=== PATIENT | female | born 1985 | race Caucasian/White ===

== ENCOUNTER 2018-06-16 22:04 | Emergency (ER) | payer OTHER ==
[~2018-06-16] VITALS: Ht 157.4 cm; Wt 47.6 kg
[~2018-06-16 22:04] MED LIST: AMOXICILLIN500 MG PO; AMOXIL250 MG PO; ANAPROX DS550 MG PO; ANTIPYRINE/BENZ10 ML OT; ATIVAN1 MG PO; AUGMENTIN 875875 MG PO; BACTRIM DS 8001 TA1 PO; BIAXIN500 MG PO; CIPRO500 MG PO; CIPRODEX 0.3%-7.5 ML OT; CLARITIN10 MG PO; COMPAZINE10 MG PO; DAYPRO600 M1 PO; FLONASE 0.05% 121 EA NAS; KEFLEX500 MG PO; MACROBID100 M1 PO; MACROBID100 MG PO; MOTRIN800 MG PO; NKHM; PROVENTIL0.09 MG/AC IH; ROBAXIN750 MG PO; TRAMADOL HCL50 MG PO; ULTRAM50 MG PO; VIBRA-TAB100 MG PO; VIBRAMYCIN100 MG PO; VICODIN 5/500 505 MG PO; XANAX1 MG PO; ZITHROMAX Z PA250 MG PO; ZYRTEC10 M2 PO
[2018-06-16 22:06] VITALS: BP 118/58
[2018-06-16] MEDS ORDERED: BENADRYL25 M2 PO (22:27)
[2018-06-16] MEDS ORDERED: PREDNISONE20 M1 PO (22:27)
== END 2018-06-16 22:10 | disposition home or self-care (01) ==
LOC: ED 22:04
DX: L25.9 Unspecified contact dermatitis, unspecified cause (principal); F17.200 Nicotine dependence, unspecified, uncomplicated

== ENCOUNTER 2018-07-20 23:56 | Emergency (ER) | payer OTHER ==
[~2018-07-20] VITALS: Ht 157.4 cm; Wt 47.6 kg
[2018-07-20 23:56] VITALS: BP 98/64
[~2018-07-20 23:56] MED LIST changes: +BENADRYL25 M2 PO; +CYCLOBENZAPRINE10 MG PO; +IBU800 MG PO; +PREDNISONE20 M1 PO
[2018-07-21] MEDS ORDERED: AMOXICILLIN500 M2 PO (00:27)
[2018-07-21] MEDS ORDERED: FLONASE ALLERG9.9 ML NAS (00:27)
[2018-07-21] MEDS ORDERED: ZYRTEC10 MG PO (00:27)
[2018-08-03] MEDS ORDERED: ZITHROMAX500 MG PO (17:54)
[2018-08-03] MEDS ORDERED: FLONASE ALLERG9.9 ML NAS (17:54)
[2018-08-03] MEDS ORDERED: PREDNISONE20 M1 PO (17:54)
[2018-08-03] MEDS ORDERED: PROVENTIL HFA6.7 GM INH (17:54)
[2018-09-20] MEDS ORDERED: ZOFRAN ODT4 MG SL (19:43)
[2018-09-20] MEDS ORDERED: PYRIDIUM100 MG PO (20:03)
[2018-09-20] MEDS ORDERED: SEPTDS PO (20:03)
== END 2018-07-21 00:52 | disposition home or self-care (01) ==
LOC: ED 23:56
DX: J01.90 Acute sinusitis, unspecified (principal); F17.200 Nicotine dependence, unspecified, uncomplicated

== ENCOUNTER 2018-09-22 18:10 | Emergency (ER) | payer OTHER ==
[~2018-09-22] VITALS: Wt 50.3 kg
[~2018-09-22 18:10] MED LIST changes: +AMOXICILLIN500 M2 PO; +FLONASE ALLERG9.9 ML NAS; +PROVENTIL HFA6.7 GM INH; +PYRIDIUM100 MG PO; +SEPTDS PO; +ZITHROMAX500 MG PO; +ZOFRAN ODT4 MG SL; +ZYRTEC10 MG PO
[2018-09-22 18:48] LABS: BASO % 0.5 % (0.0-1.0); EOS # 0.2 10*3/uL (0.0-0.4); EOS % 1.7 % (1.0-4.0); HEMATOCRIT 41.6 % (37.0-47.0); HEMOGLOBIN 13.5 g/dl (12.0-16.0); LYMPH # 3.9 10*3/uL (1.3-4.4); LYMPH % 44.6 % (27.0-41.0); MEAN CELL VOLUME 95.6 fl (81.0-99.0); MEAN CORPUSCULAR HGB CONC 32.5 g/dl (33.0-37.0); MONO # 0.4 10*3/uL (0.1-1.0); MONO % 5.1 % (3.0-9.0); NEUT # 4.2 10*3/uL (2.3-7.9); PLATELET COUNT AUTOMATED 192 10*3/uL (130-400); RED BLOOD COUNT 4.35 10*6/uL (4.10-5.10); RED CELL DISTRI WIDTH 12.5 % (0-14.5); WHITE BLOOD COUNT 8.6 10*3/uL (4.8-10.8)
[2018-09-22 19:05] LABS: ALBUMIN 4.2 gm/dl (3.1-4.5); BUN 14 mg/dl (7-24); CHLORIDE 104 mmol/L (98-107); CREATININE 0.85 mg/dL (0.55-1.02); LIPASE 98 U/L (73-393); SGOT/AST 11 IU/L (3-35); SGPT/ALT 13 U/L (12-78); SODIUM 139 mmol/L (136-145); TOTAL PROTEIN 7.8 gm/dL (6.4-8.2)
[2018-09-22 19:06] LABS: ALKALINE PHOSPHATASE 65 U/L (45-117)
[2018-09-22 19:52] LABS: BILIRUBIN NEGATIVE (NEGATIVE); BLOOD 3+ (NEGATIVE); CLARITY SL CLOUDY (CLEAR); COLOR YELLOW (YELLOW); GLUCOSE NEGATIVE (NEGATIVE); KETONE NEGATIVE (NEGATIVE); LEUKO ESTERASE TRACE (NEGATIVE); NITRITE NEGATIVE (NEGATIVE); SPECIFIC GRAVITY >= 1.030 (1.005-1.030); UROBILINOGEN 0.2 E.U./dl (0.2-1.0)
[2018-09-22 20:06] LABS: MUCOUS TRACE; RBC TNTC rbc/hpf (0-2)
[2018-09-23 00:58] VITALS: BP 100/62
== END 2018-09-23 01:21 | disposition short-term general hospital (02) ==
LOC: ED 18:10
PROVIDERS: Physician Assistant
DX: N20.0 Calculus of kidney (principal); N13.30 Unspecified hydronephrosis; N39.0 Urinary tract infection, site not specified; Z79.2 Long term (current) use of antibiotics; Z79.1 Long term (current) use of non-steroidal anti-inflammatories (NSAID); Z79.899 Other long term (current) drug therapy; Z87.442 Personal history of urinary calculi

== ENCOUNTER → 2018-09-28 | Outpatient (CLI) | payer OTHER | END | disposition home or self-care (01) | LOC: RAD 14:04 | DX: N20.0 Calculus of kidney (principal) ==

== ENCOUNTER 2019-02-15 15:25 | Emergency (ER) | payer OTHER ==
[~2019-02-15] VITALS: Ht 157.4 cm; Wt 49.9 kg
[2019-02-15 15:26] VITALS: BP 111/62
[2019-02-15 16:28] LABS: BASO # 0.1 10*3/uL (0.0-0.1); BASO % 0.5 % (0.0-1.0); EOS # 0.1 10*3/uL (0.0-0.4); HEMOGLOBIN 12.4 g/dl (12.0-16.0); LYMPH # 3.4 10*3/uL (1.3-4.4); LYMPH % 35.3 % (27.0-41.0); MEAN CELL VOLUME 96.4 fl (81.0-99.0); MEAN CORPUSCULAR HGB 32.3 pg (27.0-31.0); MEAN CORPUSCULAR HGB CONC 33.5 g/dl (33.0-37.0); MEAN PLATELET VOLUME 11.3 fl (9.6-12.3); MONO # 0.4 10*3/uL (0.1-1.0); MONO % 3.9 % (3.0-9.0); NEUT # 5.7 10*3/uL (2.3-7.9); NEUT % 59.1 % (47.0-73.0); PLATELET COUNT AUTOMATED 178 10*3/uL (130-400); RED BLOOD COUNT 3.84 10*6/uL (4.10-5.10); RED CELL DISTRI WIDTH 12.4 % (0-14.5); WHITE BLOOD COUNT 9.6 10*3/uL (4.8-10.8)
[2019-02-15 16:35] LABS: BILIRUBIN NEGATIVE (NEGATIVE); BLOOD NEGATIVE (NEGATIVE); CLARITY CLEAR (CLEAR); COLOR YELLOW (YELLOW); GLUCOSE NEGATIVE (NEGATIVE); KETONE NEGATIVE (NEGATIVE); LEUKO ESTERASE NEGATIVE (NEGATIVE); NITRITE NEGATIVE (NEGATIVE); PH 6.5 (5.0-9.0); UROBILINOGEN 0.2 E.U./dl (0.2-1.0)
[2019-02-15 16:43] LABS: ALBUMIN 3.8 gm/dl (3.1-4.5); ALKALINE PHOSPHATASE 56 U/L (45-117); BUN 18 mg/dl (7-24); CHLORIDE 104 mmol/L (98-107); LIPASE 72 U/L (73-393); POTASSIUM 3.9 mmol/L (3.5-5.1); SGOT/AST 13 IU/L (3-35); SGPT/ALT 17 U/L (12-78); SODIUM 138 mmol/L (136-145); TOTAL PROTEIN 7.3 gm/dL (6.4-8.2)
[2019-02-15 16:53] LABS: BACTERIA 1+; WBC 0-2 wbc/hpf (0-5)
== END 2019-02-15 17:29 | disposition home or self-care (01) ==
LOC: ED 15:25
PROVIDERS: Nurse Practitioner Family
DX: N20.0 Calculus of kidney (principal); N23 Unspecified renal colic; F17.200 Nicotine dependence, unspecified, uncomplicated; Z87.448 Personal history of other diseases of urinary system; Z96.0 Presence of urogenital implants

== ENCOUNTER 2019-05-11 18:33 | Emergency (ER) | payer OTHER ==
[~2019-05-11] VITALS: Ht 157.4 cm; Wt 49.9 kg
[2019-05-11 18:35] VITALS: BP 111/57
[2019-05-11] MEDS ORDERED: AMOXICILLIN875 MG PO (18:57)
== END 2019-05-11 19:10 | disposition home or self-care (01) ==
LOC: ED 18:33
DX: H66.92 Otitis media, unspecified, left ear (principal); F17.200 Nicotine dependence, unspecified, uncomplicated

== ENCOUNTER 2019-11-14 14:34 | Emergency (ER) | payer OTHER ==
[~2019-11-14] VITALS: Wt 50.8 kg
[~2019-11-14 14:34] MED LIST changes: +AMOXICILLIN875 MG PO
[2019-11-14 14:58] VITALS: BP 108/67
[2019-11-14 16:16] LABS: BASO % 0.3 % (0.0-1.0); EOS # 0.1 10*3/uL (0.0-0.4); EOS % 0.5 % (1.0-4.0); HEMATOCRIT 40.3 % (37.0-47.0); HEMOGLOBIN 13.7 g/dl (12.0-16.0); LYMPH # 3.1 10*3/uL (1.3-4.4); LYMPH % 30.5 % (27.0-41.0); MEAN CORPUSCULAR HGB 32.6 pg (27.0-31.0); MONO # 0.3 10*3/uL (0.1-1.0); MONO % 3.1 % (3.0-9.0); NEUT # 6.7 10*3/uL (2.3-7.9); NEUT % 65.4 % (47.0-73.0); PLATELET COUNT AUTOMATED 202 10*3/uL (130-400); RED CELL DISTRI WIDTH 12.5 % (0-14.5); WHITE BLOOD COUNT 10.2 10*3/uL (4.8-10.8)
[2019-11-14 16:22] LABS: BILIRUBIN NEGATIVE (NEGATIVE); BLOOD NEGATIVE (NEGATIVE); CLARITY CLEAR (CLEAR); COLOR YELLOW (YELLOW); GLUCOSE NEGATIVE (NEGATIVE); KETONE 1+ (NEGATIVE); LEUKO ESTERASE NEGATIVE (NEGATIVE); NITRITE NEGATIVE (NEGATIVE); PH 7.5 (5.0-9.0); UROBILINOGEN 0.2 E.U./dl (0.2-1.0)
[2019-11-14 16:35] LABS: ALBUMIN 3.9 gm/dl (3.1-4.5); ALKALINE PHOSPHATASE 57 U/L (45-117); BUN 12 mg/dl (7-24); CHLORIDE 106 mmol/L (98-107); CREATININE 0.65 mg/dL (0.55-1.02); LIPASE 56 U/L (73-393); SGOT/AST 7 IU/L (3-35); SGPT/ALT 13 U/L (12-78); SODIUM 138 mmol/L (136-145); TOTAL PROTEIN 7.3 gm/dL (6.4-8.2)
[2019-11-14 16:49] LABS: BETA-HCG, QUANT < 1.0 mIU/mL (1-3)
== END 2019-11-14 21:38 ==
LOC: ED 14:34
PROVIDERS: Emergency Medicine
DX: R10.31 Right lower quadrant pain (principal); M54.5 Low back pain; R11.0 Nausea; R30.9 Painful micturition, unspecified; Z87.442 Personal history of urinary calculi

== ENCOUNTER 2019-12-30 08:11 | Emergency (ER) | payer OTHER ==
[~2019-12-30] VITALS: Ht 157.4 cm; Wt 49.9 kg
[2019-12-30 08:20] VITALS: BP 117/62
[2019-12-30 08:53] LABS: BASO % 0.5 % (0.0-1.0); EOS % 0.5 % (1.0-4.0); HEMATOCRIT 41.6 % (37.0-47.0); HEMOGLOBIN 13.7 g/dl (12.0-16.0); LYMPH # 1.4 10*3/uL (1.3-4.4); LYMPH % 24.1 % (27.0-41.0); MEAN CELL VOLUME 95.6 fl (81.0-99.0); MEAN CORPUSCULAR HGB 31.5 pg (27.0-31.0); MEAN CORPUSCULAR HGB CONC 32.9 g/dl (33.0-37.0); MEAN PLATELET VOLUME 10.8 fl (9.6-12.3); MONO # 0.3 10*3/uL (0.1-1.0); MONO % 4.9 % (3.0-9.0); NEUT # 4.2 10*3/uL (2.3-7.9); NEUT % 69.8 % (47.0-73.0); PLATELET COUNT AUTOMATED 212 10*3/uL (130-400); RED BLOOD COUNT 4.35 10*6/uL (4.10-5.10); WHITE BLOOD COUNT 5.9 10*3/uL (4.8-10.8)
[2019-12-30 09:10] LABS: LEUKO ESTERASE TRACE (NEGATIVE)
[2019-12-30 09:10] LABS: ALBUMIN 4.2 gm/dl (3.1-4.5); ALKALINE PHOSPHATASE 62 U/L (45-117); BUN 17 mg/dl (7-24); CHLORIDE 107 mmol/L (98-107); CREATININE 0.74 mg/dL (0.55-1.02); LIPASE 51 U/L (73-393); POTASSIUM 3.8 mmol/L (3.5-5.1); SGOT/AST 10 IU/L (3-35); SGPT/ALT 15 U/L (12-78); SODIUM 140 mmol/L (136-145); TOTAL PROTEIN 7.9 gm/dL (6.4-8.2)
[2019-12-30 09:12] LABS: BACTERIA 3+
[2019-12-30 09:13] LABS: BILIRUBIN NEGATIVE (NEGATIVE); CLARITY CLOUDY (CLEAR); COLOR YELLOW (YELLOW); GLUCOSE NEGATIVE (NEGATIVE); KETONE 2+ (NEGATIVE)
[2019-12-30 09:14] LABS: BLOOD NEGATIVE (NEGATIVE); SPECIFIC GRAVITY 1.005 (1.005-1.030)
[2019-12-30 09:21] LABS: NITRITE NEGATIVE (NEGATIVE); PH 8.5 (5.0-9.0); UROBILINOGEN 0.2 E.U./dl (0.2-1.0)
[2019-12-30] MEDS ORDERED: TYLENOL325 M1 PO (11:10)
[2019-12-30] MEDS ORDERED: ZOFRAN4 MG PO (11:10)
== END 2019-12-30 11:20 | disposition home or self-care (01) ==
LOC: ED 08:11
PROVIDERS: Emergency Medicine
DX: K52.9 Noninfective gastroenteritis and colitis, unspecified (principal); R11.2 Nausea with vomiting, unspecified; F17.210 Nicotine dependence, cigarettes, uncomplicated; Z87.442 Personal history of urinary calculi

== ENCOUNTER 2020-01-17 17:54 | Emergency (ER) | payer OTHER ==
[~2020-01-17] VITALS: Ht 157.4 cm; Wt 51.7 kg
[~2020-01-17 17:54] MED LIST changes: +TYLENOL325 M1 PO; +ZOFRAN4 MG PO
[2020-01-17 18:01] VITALS: BP 129/86
[2020-01-17] MEDS ORDERED: CEPHALEXIN500 M1 PO (18:12)
[2020-01-17] MEDS ORDERED: SEPTDS PO (18:12)
== END 2020-01-17 18:22 | disposition home or self-care (01) ==
LOC: ED 17:54
DX: L02.211 Cutaneous abscess of abdominal wall (principal); Z79.899 Other long term (current) drug therapy

== ENCOUNTER 2020-05-31 20:21 | Emergency (ER) | payer OTHER ==
[~2020-05-31] VITALS: Ht 157.4 cm; Wt 47.6 kg
[~2020-05-31 20:21] MED LIST changes: +CEPHALEXIN500 M1 PO
[2020-05-31 20:57] VITALS: BP 117/75
[2020-05-31] MEDS ORDERED: PREDNISONE10 MG PO (21:32)
== END 2020-05-31 21:44 | disposition home or self-care (01) ==
LOC: ED 20:21
DX: L23.9 Allergic contact dermatitis, unspecified cause (principal)

== ENCOUNTER → 2020-08-09 | Outpatient (CLI) | payer OTHER ==
[~2020-08-09] MED LIST changes: +PREDNISONE10 MG PO
== END | disposition home or self-care (01) ==
LOC: COVID19 00:08
PROVIDERS: ATTEND Family Medicine
DX: Z20.828 Contact with and (suspected) exposure to other viral communicable diseases (principal)

== ENCOUNTER → 2021-06-13 | Outpatient (CLI) | payer OTHER ==
[2021-06-13 13:16] LABS: BASO # 0.1 10*3/uL (0.0-0.1); BASO % 0.4 % (0.0-1.0); EOS # 0.1 10*3/uL (0.0-0.4); EOS % 0.4 % (1.0-4.0); HEMATOCRIT 38.7 % (37.0-47.0); LYMPH # 2.9 10*3/uL (1.3-4.4); LYMPH % 23.5 % (27.0-41.0); MEAN CELL VOLUME 93.7 fl (81.0-99.0); MEAN CORPUSCULAR HGB CONC 34.1 g/dl (33.0-37.0); MEAN PLATELET VOLUME 11.2 fl (9.6-12.3); MONO # 0.3 10*3/uL (0.1-1.0); MONO % 2.8 % (3.0-9.0); NEUT # 8.8 10*3/uL (2.3-7.9); NEUT % 72.6 % (47.0-73.0); PLATELET COUNT AUTOMATED 197 10*3/uL (130-400); RED BLOOD COUNT 4.13 10*6/uL (4.10-5.10); RED CELL DISTRI WIDTH 12.2 % (0-14.5); RETICULOCYTE % 1.27 % (0.50-2.50); WHITE BLOOD COUNT 12.2 10*3/uL (4.8-10.8)
[2021-06-13 13:19] LABS: BILIRUBIN Negative (Negative); BLOOD Negative (Negative); CLARITY Cloudy (Clear); COLOR Yellow (Yellow); GLUCOSE Negative (Negative); KETONE Negative (Negative); LEUKO ESTERASE 2+ (Negative); NITRITE Negative (Negative)
[2021-06-13 13:32] LABS: ALBUMIN 4.2 gm/dl (3.1-4.5); ALKALINE PHOSPHATASE 49 U/L (45-117); BUN 15 mg/dl (7-24); CHLORIDE 105 mmol/L (98-107); CHOLESTEROL 215 mg/dL (<200); CREATININE 0.67 mg/dL (0.55-1.02); GAMMA GLUTAMYL TRANSPEPTIDASE 9 U/L (5-55); IRON 81 ug/dL (50-170); LDL CHOLESTEROL 115 mg/dL (9-159); POTASSIUM 3.8 mmol/L (3.5-5.1); SGOT/AST 6 IU/L (3-35); SGPT/ALT 12 U/L (12-78); SODIUM 137 mmol/L (136-145); TOTAL IRON BINDING CAPACITY 338 ug/dl (250-450); TOTAL PROTEIN 7.7 gm/dL (6.4-8.2); TRIGLYCERIDES 134 mg/dl (<150)
[2021-06-13 13:38] LABS: THYROID STIM HORMONE (HS) 0.807 uIU/ml (0.358-4.75); URIC ACID 3.3 mg/dL (2.6-6.0)
[2021-06-13 13:57] LABS: FERRITIN 40.5 ng/mL (10.0-291.0); VITAMIN D, 25-HYDROXY 31.8 ng/mL (30-100)
[2021-06-13 13:59] LABS: RBC 0-2 rbc/hpf (0-2)
[2021-06-13 14:00] LABS: BACTERIA 2+; EPITHELIAL CELLS TNTC
[2021-06-14 08:08] LABS: RHEUMATOID ARTHRITIS FACTOR 11.2 IU/mL (0.0-13.9)
[2021-06-14 15:06] LABS: ANTI-DSDNA ANTIBODIES 2 IU/mL (0-9)
== END | disposition home or self-care (01) ==
LOC: LAB 12:58
PROVIDERS: ATTEND Family Medicine
DX: R53.83 Other fatigue (principal); R79.89 Other specified abnormal findings of blood chemistry; E78.5 Hyperlipidemia, unspecified; E55.9 Vitamin D deficiency, unspecified

== ENCOUNTER → 2021-08-01 | Outpatient (CLI) | payer OTHER | END | disposition home or self-care (01) | LOC: COVID19 17:10 | PROVIDERS: ATTEND Internal Medicine | DX: Z11.52 Encounter for screening for COVID-19 (principal) ==

== ENCOUNTER → 2021-08-20 | Outpatient (CLI) | payer OTHER | END | disposition home or self-care (01) | LOC: COVID19 16:39 | PROVIDERS: ATTEND Student in an Organized Health Care Education/Training Program | DX: Z11.59 Encounter for screening for other viral diseases (principal) ==

== ENCOUNTER 2021-11-09 09:51 | Emergency (ER) | payer OTHER ==
[~2021-11-09] VITALS: Ht 157.4 cm; Wt 47.6 kg
[2021-11-09 10:12] VITALS: BP 98/57
[2021-11-09 10:14] LABS: BILIRUBIN Negative (Negative); BLOOD 1+ (Negative); CLARITY Clear (Clear); COLOR Yellow (Yellow); GLUCOSE Negative (Negative); KETONE Negative (Negative); LEUKO ESTERASE Trace (Negative); NITRITE Negative (Negative); PH 6.5 (4.5-8.0); SPECIFIC GRAVITY 1.015 (1.001-1.030)
[2021-11-09 10:23] LABS: BACTERIA 2+; MUCOUS 1+; WBC 0-2 wbc/hpf (0-5)
[2021-11-09 10:35] LABS: HEMATOCRIT 39.2 % (37.0-47.0); MEAN CELL VOLUME 92.5 fl (81.0-99.0); MEAN CORPUSCULAR HGB 31.4 pg (27.0-31.0); MEAN CORPUSCULAR HGB CONC 33.9 g/dl (33.0-37.0); MEAN PLATELET VOLUME 11.4 fl (9.6-12.3); PLATELET COUNT AUTOMATED 208 10*3/uL (130-400); RED BLOOD COUNT 4.24 10*6/uL (4.10-5.10); RED CELL DISTRI WIDTH 13.1 % (0-14.5); WHITE BLOOD COUNT 18.9 10*3/uL (4.8-10.8)
[2021-11-09 10:53] LABS: ALBUMIN 3.7 gm/dl (3.1-4.5); ALKALINE PHOSPHATASE 55 U/L (45-117); BUN 10 mg/dl (7-24); CHLORIDE 109 mmol/L (98-107); LIPASE 47 U/L (73-393); POTASSIUM 3.8 mmol/L (3.5-5.1); SGOT/AST 13 IU/L (3-35); SGPT/ALT 14 U/L (12-78); SODIUM 138 mmol/L (136-145); TOTAL PROTEIN 7.6 gm/dL (6.4-8.2)
[2021-11-09 10:59] LABS: OVALOCYTES FEW; PLATELET SUFFICIENCY NORMAL (NORMAL); TOTAL CELLS COUNTED 100 #CELLS
== END 2021-11-09 14:45 | disposition home or self-care (01) ==
LOC: ED 09:51
PROVIDERS: Emergency Medicine
DX: N94.19 Other specified dyspareunia (principal); F17.200 Nicotine dependence, unspecified, uncomplicated

== ENCOUNTER 2023-12-24 07:37 | Emergency (ER) | payer OTHER ==
[~2023-12-24] VITALS: Ht 160 cm; Wt 50.3 kg
[2023-12-24 07:54] VITALS: BP 97/65
[2023-12-24] MEDS ORDERED: Ketorolac Tromethamine 30 MG/ML VIAL IV ONE (08:20)
[2023-12-24] MEDS ORDERED: Ketorolac Tromethamine 30 MG/ML VIAL IM ONE (08:20)
[2023-12-24] MEDS ORDERED: MELOXICAM15 MG PO (10:09)
== END 2023-12-24 10:13 | disposition home or self-care (01) ==
LOC: ED 07:37
DX: S93.402A Sprain of unspecified ligament of left ankle, initial encounter (principal); F41.9 Anxiety disorder, unspecified; Z98.890 Other specified postprocedural states; Z90.710 Acquired absence of both cervix and uterus; W19.XXXA Unspecified fall, initial encounter; Y93.89 Activity, other specified; Y92.89 Other specified places as the place of occurrence of the external cause; Y99.8 Other external cause status